=== PATIENT | female | born 1970 | race Caucasian/White ===

== ENCOUNTER 2017-05-06 11:55 | Emergency (ER) | payer BC, OTHER ==
[2017-05-06 12:00] VITALS: BP 121/75; PULSE 86; TEMP 98.6; BMI 22.6
[2017-05-06] MEDS ORDERED: SODIUM CHLORIDE 1,000 ML IV STA (12:26)
--- NOTE | 2017-05-06 12:39 | PDOC ---
History of Present Illness - General Chief Complaint: Psychiatric Stated Complaint: VERY STRESSED OUT, NOT EATING OR SLEEPING Time Seen by Provider: 05/06/17 11:58 History Source: Patient Exam Limitations: No Limitations - History of Present Illness Initial Comments: This is a 47 yo female with h/o GERD, spontaneous pneumothorax years ago, and remote h/o anxiety (decades ago) who p/w increased anxiety and insomnia for the past 8 days. She has been going through a legal process of losing her house because she and her partner defaulted on their mortgage, and this has been very stressful for her. She has been drinking plenty of water but not eating for the past 8 days. She notes shakiness and lightheadedness, and mild left-sided chest discomfort. Additionally expresses concern that she feels dehydrated and almost passed out in the hot shower this morning. She denies any recent fever, chills, nausea, vomiting, diarrhea, constipation, cough, sore throat, runny nose, numbness, tingling, focal weakness, shortness of breath, abdominal pain, or other recent symptoms. She denies ever having thoughts of hurting herself or others. She lives with her partner and two teenage children, and denies any drug use but has been smoking "too many" cigarettes lately and occasionally uses alcohol. She took one Xanax from a friend about a week ago which did help for a short amount of time, but she does not want any anxiolytics. She expresses concern that other members of her immediate family have struggled with addiction, so she does not want to start any potentially addicting medications. Past History - Past Medical History Allergies/Adverse Reactions: Allergies Allergy/AdvReac Type Severity Reaction Status Date / Time clarithromycin [From Biaxin] Allergy Verified 05/06/17 11:57 Home Medications: Ambulatory Orders Hydroxyzine Pamoate [Vistaril -] 25 mg PO TID PRN #10 capsule 05/06/17 Psychiatric Problems: Yes (anxiety decades ago) Other medical history: LOW BP - Psycho/Social/Smoking Cessation Hx Anxiety: No Suicidal Ideation: No Smoking History: Current every day smoker Have you smoked in the past 12 months: Yes Number of Cigarettes Smoked Daily: 20 Information on smoking cessation initiated: Yes 'Breaking Loose' booklet given: 05/06/17 Hx Alcohol Use: No Drug/Substance Use Hx: No Substance Use Type: None Review of Systems - Review of Systems Able to Perform ROS?: Yes Constitutional: Yes: Loss of Appetite, Weakness (mild generalized), Other ( shakiness). No: Chills, Fever HEENTM: No: Recent change in vision, Nose Congestion, Throat Pain, Difficulty Swallowing Respiratory: No: Cough, Shortness of Breath Cardiac (ROS): Yes: Chest Pain (mild left-sided). No: Palpitations ABD/GI: Yes: Poor Appetite. No: Constipated, Diarrhea, Nausea, Rectal Bleeding , Vomiting : No: Burning, Dysuria Musculoskeletal: No: Back Pain, Neck Pain Integumentary: No: Bruising, Rash Neurological: No: Headache, Numbness, Tingling, Weakness, Dizziness Psychiatric: Yes: Anxiety, Sleep Pattern Change, Change in Appetite Endocrine: No: Unexplained Weight Gain, Unexplained Weight Loss *Physical Exam - Vital Signs Last Vital Signs Temp Pulse Resp BP Pulse Ox 98.6 F 86 16 121/75 100 05/06/17 11:56 05/06/17 11:56 05/06/17 11:56 05/06/17 11:56 05/06/17 11:56 - Physical Exam General Appearance: Yes: Nourished, Appropriately Dressed, Mild Distress, Other (nontoxic and well-appearing female, conversive, reclining on hospital bed, appears mildly anxious but this improves with calm conversation) HEENT: positive: EOMI, JAN, Normal ENT Inspection, Normal Voice, Hearing Grossly Normal. negative: Scleral Icterus (R), Scleral Icterus (L), Nasal Congestion Neck: positive: Trachea midline, Supple. negative: Tender, Rigid Respiratory/Chest: positive: Lungs Clear, Normal Breath Sounds. negative: Respiratory Distress, Crackles, Rhonchi, Stridor, Wheezing Cardiovascular: positive: Regular Rhythm, Regular Rate. negative: Murmur Gastrointestinal/Abdominal: positive: Normal Bowel Sounds, Soft. negative: Tender, Organomegaly, Pulsatile Mass, Guarding Musculoskeletal: positive: Normal Inspection. negative: Decreased Range of Motion, Vertebral Tenderness Extremity: positive: Normal Capillary Refill, Normal Inspection, Normal Range of Motion. negative: Tender, Cyanosis Integumentary: positive: Normal Color, Dry, Warm. negative: Erythema, Rash, Bruising Neurologic: positive: vp sales II-XII NML intact, Fully Oriented, Alert, Normal Mood/ Affect, Normal Response, Motor Strength 5/5, Other (not overtly tremulous) Heart Score/ECG Review - History History: Slightly suspicious - Electrocardiogram EKG: Normal - Age Age: 45-65 - Risk Factors Based on the list above the patient has:: No risk factors known - Troponin Troponin: </= normal limit - Score Heart Score - Total: 1 #1 ECG reviewed & interpreted by me at: 12:33 NSR, rate of 72, normal axis and intervals, t-wave flattening in aVL and V2 but no ischemic changes. ED Treatment Course - LABORATORY CBC & Chemistry Diagram: 05/06/17 12:44 05/06/17 12:44 Medical Decision Making - Medical Decision Making 47 yo female p/w 8d anxiety, lightheadedness, pre-syncope in shower this morning. Recently defaulted on mortgage and in the process of being evicted, very stressful for her. DDX includes anxiety/panic attack, dehydration, anemia, electrolyte disturbance , thyroid disease. Ordered are CBCD, CMP, Mg, Phos, troponin, serum preg, TSH, EKG, 1L bolus NS. 05/06/17 15:35 CMP Mg and Phos unremarkable; less likely electrolyte disturbance. CBC with WBC of 12.3 is likely stress response given patient's anxiety. EKG and troponin are negative, less likely ACS. TSH is normal; less likely thyroid disorder. Serum preg negative. Patient feels significantly better after 1 L bolus NS and food tray. She feels comfortable with discharge home with Rx for Vistaril. She will follow up with a psychiatrist or PCP or return to ED for new/worsened sxs. *DC/Admit/Observation/Transfer Diagnosis at time of Disposition: Anxiety as acute reaction to exceptional stress Insomnia Qualifiers: Insomnia type: unspecified Qualified Code(s): G47.00 - Insomnia, unspecified - Discharge Dispostion Disposition: HOME Condition at time of disposition: Stable Admit: No - Prescriptions Prescriptions: Hydroxyzine Pamoate [Vistaril -] 25 mg PO TID PRN #10 capsule PRN Reason: Anxiety - Patient Instructions Printed Discharge Instructions: DI for Anxiety -- Adult, DI for Insomnia Additional Instructions: You were seen today for increased anxiety associated with life stressors, and also for insomnia. We checked your blood cell levels and your electrolyte levels in your blood to make sure that you did not have any abnormal levels, and all the results were not concerning to us. We checked a test and it was negative. We also checked a heart enzyme level and an electrocardiogram to make sure you did not have any heart issues, and the results were normal as well. We gave you a liter of fluids and a tray of food, and this did seem to help with your symptoms. We are prescribing 10 pills of Vistaril for insomnia/ anxiety in case you need them. Please follow up with a psychiatrist to discuss a longer-term plan to help with the anxiety and insomnia. In the meantime, consider trying the following for insomnia: Try melatonin 5 mg 30 minutes before bedtime. If this does not work, you can try taking 10 mg 30 minutes before bedtime. If the melatonin does not work, you can try the Vistaril 30 minutes before bedtime. Do not drink caffeinated beveraged after 2 pm. Try to go to bed at the same time every night, and wake up at the same time every morning. Use your bed and bedroom only for sleep and sex; do not watch TV or do any work. If you are unable to sleep, do not stay in bed because your mind will start associating the bed with insomnia instead of sleep. Get up, walk around your home, do something unproductive that doesn't stimulate your mind, then try going back to bed. Don't look at bright lights, TV screens, computer screens, or smart phones just before bedtime. Keep your bedroom calm and quiet around bedtime. Talk with your PCP or psychiatrist about your "sleep hygeine" and any improvements that can be made. - Attestations Physician Attestion: 05/06/17 12:50 I, Dr. Trinidad Kenney, attest that this document has been prepared under my direction and personally reviewed by me in its entirety. I further attest, that it accurately reflects all work, treatment, procedures and medical decision -making performed by me.
--- NOTE | 2017-05-06 12:42 | PDOC ---
Attending Attestation - Resident Resident Name: Trinidad Kenney - ED Attending Attestation I have performed the following: I have examined & evaluated the patient, The case was reviewed & discussed with the resident, I agree w/resident's findings & plan - HPI HPI: 05/06/17 12:37 47 y/o female with increase stress over the last few weeks, has had decrease appetite and weight loss. Denies SI, HI, N/V/D/C. Today felt like she was going to pass out in the shower. Advised to come in for further evaluation. No SOB or chest pain. No back pain. Denies palpitations. - Physicial Exam PE: 05/06/17 12:40 PE: VS stable HEENT: unremarkable Heart: RRR w/o murmur Lungs CTA b/l no wheezes rhonchi or rales Abdomen: soft non tender +BS Ext neg C/C/e nEURO gROSSLY INTACT EKG NSR at 72, no ST-T wave changes noted 05/06/17 15:33 Labs normal, IVF and eating Will discharge home Anxiety Will place on Vistaril with follow up with her PMD Pt in agreement with plan - Medical Decision Making 05/06/17 15:33 A; anxiety stress reaction P: Vistaril Return as needed, follow up with PMD Pt in agreement with ramon, no SI or HIAgree with resident Dr. Kenney
[2017-05-06 13:46] LABS: ALBUMIN 4.4 g/dl (3.5-5.0); ALK PHOS 42 U/L (32-92); ANION GAP 11 (8-16); BILIRUBIN,TOTAL 0.6 mg/dl (0.2-1.0); CALCIUM 9.5 mg/dl (8.4-10.2); CO2 24 mmol/L (22-28); CREATININE 0.5 mg/dl (0.6-1.3); GLUCOSE,RANDOM 89 mg/dl (74-106); PHOSPHOROUS 3.1 mg/dl (2.5-4.6); SGOT/AST 15 U/L (10-42); SGPT/ALT 15 U/L (10-40)
[2017-05-06 15:08] LABS: EOSINOPHIL 0.3 % (0-4.5); MCH 33.4 pg (25.7-33.7); MCHC 34.7 g/dl (32.0-36.0); MEAN CELL VOLUME 96.2 fl (80-96); MEAN PLT VOLUME 8.1 fl (7.5-11.1); NEUTROPHILS 72.3 % (42.8-82.8); PLATELET COUNT 340 K/MM3 (134-434); RDW 14.3 % (11.6-15.6); WHITE BLOOD COUNT 12.3 K/mm3 (4.0-10.0)
[2017-05-06 15:17] LABS: THYROID STIMULATING HORMONE 0.68 uIU/ml (0.358-3.74)
--- NOTE | 2017-05-07 13:23 | EKG ---
Test Reason : Blood Pressure : / mmHG Vent. Rate : 072 BPM Atrial Rate : 072 BPM P-R Int : 104 ms QRS Dur : 072 ms QT Int : 388 ms P-R-T Axes : 076 023 070 degrees QTc Int : 424 ms SINUS RHYTHM WITH SHORT MO RSR' OR QR PATTERN IN V1 SUGGESTS RIGHT VENTRICULAR CONDUCTION DELAY Delayed R wave progression NO PREVIOUS ECGS AVAILABLE Confirmed by JOHN DONATO MD ([id number]) on 05/07/2017 1:23:19 PM Referred By: CHENTE MOCTEZUMA Confirmed By:JOHN DONATO MD
== END 2017-05-06 15:39 | disposition home or self-care (01) ==
LOC: FER 11:55
PROC: 3E0337Z Introduction of Electrolytic and Water Balance Substance into Peripheral Vein, Percutaneous Approach (ICD-10-PCS; principal; 2017-05-06)
DX: F41.1 Generalized anxiety disorder (principal); F43.0 Acute stress reaction; G47.00 Insomnia, unspecified; K21.9 Gastro-esophageal reflux disease without esophagitis; J93.83 Other pneumothorax; F17.210 Nicotine dependence, cigarettes, uncomplicated
CPT/HCPCS: 36415; 80053; 83735; 84100; 84443; 84484; 84703; 85025; 93005; 99283-25

== ENCOUNTER 2017-07-17 17:41 | Emergency (ER) | payer OTHER ==
[2017-07-17 17:46] VITALS: BMI 18.6
[2017-07-17] MEDS ORDERED: METOCLOPRAMIDE HCL INJECTION 10 MG/2 ML VIAL IVPUSH ONE (18:14)
[2017-07-17] MEDS ORDERED: SODIUM CHLORIDE 1,000 ML IV STA (18:14)
[2017-07-17] MEDS ORDERED: METOCLOPRAMIDE HCL INJECTION 10 MG/2 ML VIAL ONE (18:22)
--- NOTE | 2017-07-17 18:27 | PDOC ---
History of Present Illness - General Chief Complaint: Headache Stated Complaint: HEADACHE Time Seen by Provider: 07/17/17 17:52 History Source: Patient Exam Limitations: No Limitations - History of Present Illness Initial Comments: 07/17/17 18:21 47 year old F with pmh of spontaneous pneumo many years ago and gerd presenting with headache x 1 month. Patient states she has had constant headache that is bifrontal radiating to the occiput that began gradually. Patient has tried motrin with no help. Patient endorses blurry vision, slurred speech, photophobia , phonophobia, ataxia, tinnitus. Patient endorses 20 lb weight loss over last 2 months as she has not been eating. Patient has been under stressful financial situation at home and has been depressed. She tried remeron for a few days with no help. She saw a psychiatrist today who said she needed a neurological evaluation. Patient denies any SI/HI. PSH: D&C All: clarithromycin SH: 1 ppd smoker x 20 yrs PCP: Dr. Benitez 07/17/17 18:29 Past History - Past Medical History Allergies/Adverse Reactions: Allergies Allergy/AdvReac Type Severity Reaction Status Date / Time clarithromycin [From Biaxin] Allergy Verified 07/17/17 17:46 hydroxyzine HCl Allergy Verified 07/17/17 18:35 [From Vistaril] Home Medications: Ambulatory Orders Paroxetine HCl [Paxil -] 10 mg PO DAILY 07/17/17 Psychiatric Problems: Yes (anxiety decades ago) - Suicide/Smoking/Psychosocial Hx Smoking History: Current every day smoker Have you smoked in the past 12 months: Yes Number of Cigarettes Smoked Daily: 20 Information on smoking cessation initiated: Yes 'Breaking Loose' booklet given: 07/17/17 Hx Alcohol Use: No Drug/Substance Use Hx: No Substance Use Type: None Review of Systems - Review of Systems Able to Perform ROS?: Yes Comments:: 07/17/17 18:27 As per HPI *Physical Exam - Vital Signs Last Vital Signs Temp Pulse Resp BP Pulse Ox 97.6 F 85 20 148/84 100 07/17/17 17:42 07/17/17 17:42 07/17/17 17:42 07/17/17 17:42 07/17/17 17:42 - Physical Exam Comments: 07/17/17 18:27 GENERAL: Awake, alert, and fully oriented, in no acute distress. +Cachetic HEAD: No signs of trauma, normocephalic, atraumatic EYES: PERRLA, EOMI, sclera anicteric, conjunctiva clear ENT: Auricles normal inspection, hearing grossly normal, nares patent, oropharynx clear without exudates. Dry mucosa NECK: Normal ROM, supple, no lymphadenopathy, JVD, or masses LUNGS: No distress, speaks full sentences, bilateral crackles HEART: Regular rate and rhythm, normal S1 and S2, no murmurs, rubs or gallops, peripheral pulses normal and equal bilaterally. ABDOMEN: Soft, nontender, normoactive bowel sounds. No guarding, no rebound. No masses EXTREMITIES: Normal inspection, Normal range of motion, no edema. No clubbing or cyanosis. NEUROLOGICAL: Cranial nerves II through XII grossly intact. Normal speech, normal gait, no focal sensorimotor deficits. 5/5 strength b/l, cerebellar intact , sensation intact SKIN: Warm, Dry, normal turgor, no rashes or lesions noted. ED Treatment Course - LABORATORY CBC & Chemistry Diagram: 07/17/17 18:17 07/17/17 18:17 Medical Decision Making - Medical Decision Making 07/17/17 18:29 47 year old F with pmh of spontaneous pneumo many years ago and gerd presenting with headache x 1 month. Plan: cbc, cmp, upreg, ua, ct head, ivf, reglan. If negative, patient will f/u with neurology. Pt signed out to Dr. Santo *DC/Admit/Observation/Transfer Diagnosis at time of Disposition: Head ache - Discharge Dispostion Disposition: HOME - Referrals Referrals: Tip Ruano MD [Staff Physician] - Paloma Marvin MD [Primary Care Provider] - - Patient Instructions Printed Discharge Instructions: DI for Headache, DI for Insomnia Additional Instructions: Follow up with Dr. Ruano for a more complete evaluation of your headaches Periodic use of Benadryl can be used as a sleep aid. Avoid continuous use and follow up with your primary physician for a more complete evaluation of your insomnia. If your symptoms significantly worsen or you develop any new or concerning symptoms including fever or confusion you need to return to the emergency room immediately. If you do not feel safe driving yourself please call 911. Print Language: CHINESE
[2017-07-17 18:36] LABS: BASOPHIL 0.4 % (0-2.0); EOSINOPHIL 0.6 % (0-4.5); MCH 33.3 pg (25.7-33.7); MCHC 34.4 g/dl (32.0-36.0); MEAN CELL VOLUME 96.7 fl (80-96); MEAN PLT VOLUME 7.6 fl (7.5-11.1); NEUTROPHILS 75.4 % (42.8-82.8); PLATELET COUNT 336 K/MM3 (134-434); RDW 13.9 % (11.6-15.6); WHITE BLOOD COUNT 19.6 K/mm3 (4.0-10.0)
--- NOTE | 2017-07-17 18:59 | PDOC ---
Attending Attestation - Resident Resident Name: Vincent Patino - ED Attending Attestation I have performed the following: I have examined & evaluated the patient, The case was reviewed & discussed with the resident, I agree w/resident's findings & plan, Exceptions are as noted - HPI HPI: 07/17/17 18:56 47-year-old female with history of depression presents with 2 months of persistent headache. Patient referred by her psychiatrist, who she saw today for worsening depression symptoms, did mention some suicidal ideation with him that was cleared and now denying. Her headache has been persistent for 2 months , daily, not exacerbated by any position, but typically worse at night. Some associated vision/gait disturbances but no persistent neurologic deficits or focal/unilateral weakness. No history of head injuries. Takes [id number]-ydekhef medications with no significant relief. - Physicial Exam PE: 07/17/17 18:57 Afebrile, vital signs normal. Well-appearing seated in stretcher No acute psychiatric findings Neurological exam is nonfocal NEURO: Mental status: The patient is alert and oriented x3. Cranial nerves: Cranial nerves II through XII are intact Motor: The upper extremities are 5 over 5 in all muscle groups. The lower extremities are 5 over 5 in all muscle groups. No pronator drift. Sensation: Sensation is intact to light touch throughout. Cerebellar: Ilmnxu-ccqnqv-zivg is normal in both upper extremities. Heel-knee- lechuga is normal in both lower extremities. Reflexes: 2+ and symmetric in the upper and lower extremities. Gait: Normal. Heel and toe walking are normal. Tandem gait is normal. - Medical Decision Making 07/17/17 18:58 Patient seen and evaluated with the resident. I agree with the overall evaluation, assessment, and management with the following summary of visit: 47-year-old female with persistent headache for 2 months, no history of recurring headaches and never had brain imaging in the past. Referred by her psychiatrist for evaluation, her vital signs are normal here and her neurological exam is normal also. No acute psychiatric complaints here, seen by her psychiatrist earlier this afternoon. Given associated neurologic symptoms with headache for 2 months, will check CT head to rule out acute pathology Check basic labs, give fluids and Reglan for headache Dispo accordingly 07/17/17 22:20 leukocytosis but no clear etiology: normal diff, clear UA and CXR, CT head wnl, afebrile. headache resolved after reglan. feels well, agrees with d/c plan, will f/u with neurology and her psychiatrist. understands return criteria.
[2017-07-17 19:02] LABS: ALBUMIN 4.1 g/dl (3.4-5.0); ANION GAP 7 (8-16); CALCIUM 8.9 mg/dL (8.5-10.1); CO2 26 mmol/L (21-32); CREATININE 0.6 mg/dL (0.55-1.02); GLUCOSE,RANDOM 85 mg/dL (74-106); SGOT/AST 10 U/L (15-37); SGPT/ALT 18 U/L (12-78)
[2017-07-17 19:04] LABS: ALK PHOS 55 U/L (45-117)
--- NOTE | 2017-07-17 19:44 | PDOC ---
*Physical Exam - Vital Signs Last Vital Signs Temp Pulse Resp BP Pulse Ox 97.6 F 85 20 148/84 100 07/17/17 17:42 07/17/17 17:42 07/17/17 17:42 07/17/17 17:42 07/17/17 17:42 ED Treatment Course - LABORATORY CBC & Chemistry Diagram: 07/17/17 18:17 07/17/17 18:17 - ADDITIONAL ORDERS Additional order review: Laboratory Results 07/17/17 18:17 Sodium 137 Potassium 3.7 Chloride 104 Carbon Dioxide 26 Anion Gap 7 L BUN 10 Creatinine 0.6 Creat Clearance w eGFR > 60 Random Glucose 85 Calcium 8.9 Total Bilirubin 1.0 AST 10 L ALT 18 Alkaline Phosphatase 55 Total Protein 7.0 Albumin 4.1 07/17/17 18:17 RBC 4.59 MCV 96.7 H MCHC 34.4 RDW 13.9 MPV 7.6 Neutrophils % 75.4 Lymphocytes % 16.4 Monocytes % 7.2 Eosinophils % 0.6 D Basophils % 0.4 - Medications Given in the ED: ED Medications Discontinued Medications Generic Name Dose Route Start Last Admin Trade Name Freq PRN Reason Stop Dose Admin Sodium Chloride 1,000 mls @ 1,000 mls/hr 07/17/17 18:14 07/17/17 18:33 Normal Saline - IV 07/17/17 19:13 1,000 mls/hr ASDIR STA Administration Metoclopramide HCl 10 mg 07/17/17 18:14 07/17/17 18:33 Reglan Injection - IVPUSH 07/17/17 18:15 10 mg ONCE ONE Administration Progress Note - Progress Note Progress Note: Patient is a stable 47 year old female signed out to me by Dr. Patino Hx of intermittant lim, blurry vision, slurred speech and wt loss presenting with increased LIM WBC 19 CT head after HCG +/- DC Medical Decision Making - Medical Decision Making 07/17/17 19:59 Serum HCG (-), ordered CT head and Chest PA/LAT 07/17/17 21:51 Elevated WBC but no left shift, cxt consistent with previous studies, UA non concerning for UTI and patient afebrile Discussed results with patient. Informed her we will provide neurology referral. Instructed her on sleep hygiene. Provided return precautions *DC/Admit/Observation/Transfer Diagnosis at time of Disposition: Head ache Qualifiers: Headache type: unspecified Headache chronicity pattern: unspecified pattern Intractability: not intractable Qualified Code(s): R51 - Headache; R51 - Headache - Discharge Dispostion Disposition: HOME Condition at time of disposition: Improved Admit: No - Referrals Referrals: Paloma Marvin MD [Primary Care Provider] - Tip Ruano MD [Staff Physician] - - Patient Instructions Printed Discharge Instructions: DI for Insomnia, DI for Headache Additional Instructions: Follow up with Dr. Ruano for a more complete evaluation of your headaches Periodic use of Benadryl can be used as a sleep aid. Avoid continuous use and follow up with your primary physician for a more complete evaluation of your insomnia. If your symptoms significantly worsen or you develop any new or concerning symptoms including fever or confusion you need to return to the emergency room immediately. If you do not feel safe driving yourself please call 911.
[2017-07-17 20:18] LABS: URINE APPEARANCE CLOUDY; URINE BILIRUBIN NEGATIVE (NEGATIVE); URINE BLOOD NEGATIVE (NEGATIVE); URINE COLOR YELLOW; URINE GLUCOSE (UA) NEGATIVE (NEGATIVE); URINE KETONE 1+ (NEGATIVE); URINE NITRITE NEGATIVE (NEGATIVE); URINE PROTEIN NEGATIVE (NEGATIVE); URINE UROBILINOGEN NEGATIVE mg/dL (0.2-1.0)
[2017-07-17 22:07] LABS: URINE LEUK ESTERASE Negative (NEGATIVE)
[2017-07-17 22:22] VITALS: BP 122/53; PULSE 74; TEMP 98.4
== END 2017-07-17 22:22 | disposition home or self-care (01) ==
LOC: JER 17:41
PROC: 3E033GC Introduction of Other Therapeutic Substance into Peripheral Vein, Percutaneous Approach (ICD-10-PCS; principal; 2017-07-17)
DX: R51 Headache (principal); F32.9 Major depressive disorder, single episode, unspecified; F17.210 Nicotine dependence, cigarettes, uncomplicated
CPT/HCPCS: 36415; 70450-TC; 71020-TC; 80053; 81003; 84703; 85025; 99282-25

== ENCOUNTER 2018-06-08 15:50 | Emergency (ER) | payer SELFPAY ==
[2018-06-08] MEDS ORDERED: NALOXONE HCL 0.4 MG/ML VIAL ONE (15:52)
[2018-06-08 16:21] VITALS: BP 0/0; PULSE 0; TEMP 97.1; BMI 20.5
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
--- NOTE | 2018-06-08 16:41 | PDOC ---
History of Present Illness - General Chief Complaint: Cardiac Arrest Stated Complaint: CARDIAC ARREST Time Seen by Provider: 06/08/18 16:20 History Source: EMS, Family Exam Limitations: Intubated - History of Present Illness Initial Comments: 06/08/18 16:37 The patient is a 48F with a PMH of depression who presented via EMS after being found in her closet by her son after she hung herself. EMS provided the history. EMS states that the patient was found by her son who immediately cut her down and began CPR. The patient was hanging for an unknown amount of time. Per EMS, she was in asystole on their arrival. No other history could be obtained. Past History - Past Medical History Allergies/Adverse Reactions: Allergies Allergy/AdvReac Type Severity Reaction Status Date / Time No Allergy Information Allergy Verified 06/08/18 16:09 Available Home Medications: Ambulatory Orders Unobtainable 06/08/18 COPD: No - Suicide/Smoking/Psychosocial Hx Smoking History: Unknown if ever smoked Have you smoked in the past 12 months: No Information on smoking cessation initiated: No Hx Alcohol Use: No Drug/Substance Use Hx: No Review of Systems - Review of Systems Able to Perform ROS?: No (intubated) *Physical Exam - Vital Signs Last Vital Signs Temp Pulse Resp BP Pulse Ox 97.1 F L 0 L 0 L 0/0 06/08/18 16:09 06/08/18 16:09 06/08/18 16:09 06/08/18 16:09 - Physical Exam Comments: 06/08/18 17:05 GENERAL: Intubated and unresponsive. HEENT: Normocephalic, atraumatic. Blown pupils. NECK: C5-6 step off. Notable induration with rope-like indentation around neck ( ligature). CARDIOVASCULAR: Pulseless. PULMONARY: Bilateral breath sounds noted with insufflation of bag. ABDOMINAL: Soft. EXTREMITIES: Mild cyanosis. No clubbing. No edema. No calf tenderness or swelling. SKIN: Superficial abrasion noted on inferior gluteal surface. Cold and dry. Prolonged capillary refill. No rashes. No jaundice. NEUROLOGICAL: Unresponsive. Blown pupils. No gag reflex. ED Treatment Course - ADDITIONAL ORDERS Additional order review: Laboratory Results 06/08/18 15:58 POC Glucometer [id number] 06/08/18 15:58 POC Glucometer [id number] Medical Decision Making - Medical Decision Making 06/08/18 17:01 The patient is a 48F with a PMH of depression who presents to the ER via EMS undergoing ACLS after being found hung by her son. The son immediately cut down the patient and began CPR and called EMS. Downtime is unknown. On EMS arrival, the patient was noted to be in asystole and ACLS protocol was begun. The patient was intubated and 3 rounds of epi were given. Approximate time with EMS was 35 minutes. Upon arrival to the ER, the patient was noted to be in asystole. ACLS protocol followed. 3 pulse checks were taken, each noted without pulses and US revealed cardiac standstill with asystole on the monitor. Time of was called at 1602. Family notified. ME agreed to take the case. MD# [id number] *DC/Admit/Observation/Transfer Diagnosis at time of Disposition: Asphyxia - Discharge Dispostion Disposition: - Referrals Referrals: Charlie Falcon [Primary Care Provider] - - Patient Instructions - Post Discharge Activity
== END 2018-06-08 17:00 | disposition expired ==
LOC: MERGE 15:50 → JER 15:50
DX: T71.162A Asphyxiation due to hanging, intentional self-harm, initial encounter (principal); F32.9 Major depressive disorder, single episode, unspecified
CPT/HCPCS: 82962; 99285-25